=== PATIENT | female | born 1985 | race Caucasian/White ===

== ENCOUNTER 2025-03-28 03:33 | Emergency (ER) | payer OTHER ==
[~2025-03-28] VITALS: Ht 162.6 cm; Wt 81.6 kg
[2025-03-28 03:35] VITALS: TEMP 97.7
[2025-03-28] MEDS: ACETAMINOPHEN 325 MG TAB PO ONE (04:00)
[2025-03-28] MEDS: LORAZEPAM INJ 2 MG/ML VIAL IV ONE (04:08)
[2025-03-28 04:09] LABS: BASOPHILS % 1.0 % (0.0-1.0); EOSINOPHILS % 1.1 % (0.0-6.0); LYMPHOCYTES % 22.0 % (18.0-39.1); MONOCYTES % 12.8 % (4.4-11.3); NEUTROPHILS % 62.8 % (38.7-80.0); RED CELL DISTRIBUTION WIDTH 13.2 % (11.7-14.4)
[2025-03-28] MEDS: ONDANSETRON HCL INJ 2MG/ML 2ML 2 MG/ML VIAL IV STA (04:13)
[2025-03-28] MEDS: SODIUM CHLORIDE 0.9% 1000ML 1,000 ML IV ONE (04:13)
[2025-03-28 04:26] LABS: AMPHETAMINES SCREEN,URINE POSITIVE (NEGATIVE); CANNABINOIDS SCREEN,URINE POSITIVE (NEGATIVE); COCAINE SCREEN,URINE NEGATIVE (NEGATIVE); LEUKOCYTE ESTERASE ,URINE NEGATIVE (NEGATIVE); OPIATES SCREEN,URINE NEGATIVE (NEGATIVE); PROTEIN,URINE DIPSTICK 2+ (NEGATIVE)
[2025-03-28 04:27] LABS: METHADONE SCREEN, URINE NEGATIVE (NEGATIVE); URINE UROBILINOGEN 1 mg/dL (0.2 - 1)
[2025-03-28 04:29] LABS: EST GLOMERULAR FILTRATION RATE 98.0 ML/MIN (>=60)
[2025-03-28 04:44] LABS: EPITHELIAL CELLS,URINE MODERATE /LPF
[2025-03-28 05:28] VITALS: PULSE 74; RESP 19
[2025-03-28] MEDS ORDERED: ONDANSETRON ODT4 MG SL (05:35)
[2025-03-28] MEDS ORDERED: CEFDINIR300 MG PO (05:35)
[2025-03-28 05:36] VITALS: BP 150/87; PULSE 81; RESP 18; O2SAT 98
== END 2025-03-28 05:43 | disposition home or self-care (01) ==
LOC: ER 03:42
DX: F10.231 Alcohol dependence with withdrawal delirium (principal); F15.10 Other stimulant abuse, uncomplicated; F12.10 Cannabis abuse, uncomplicated; N39.0 Urinary tract infection, site not specified; F17.210 Nicotine dependence, cigarettes, uncomplicated
CPT/HCPCS: 36415; 70450; 80053; 80307; 80320; 81001; 84702; 85025; 99284; J2060; J2405; J7030